=== PATIENT | male | born 1955 | race Caucasian/White ===

== ENCOUNTER 2018-11-20 16:36 | Emergency (ER) | payer MEDICARE, OTHER ==
[~2018-11-20] VITALS: Ht 167.6 cm; Wt 93.4 kg
[2018-11-20] MEDS ORDERED: LOSA100T5 (16:46)
[2018-11-20 17:37] LABS: BASO % 0.2 % (0.0-1.0); EOS % 0.1 % (0.0-3.0); HEMATOCRIT 47.6 % (42.0-52.0); HEMOGLOBIN 16.3 g/dl (13.5-17.5); LYMPH # 1.1 10^3/uL (1.5-4.5); LYMPH % 9.2 % (24.0-44.0); MEAN CORPUSCULAR HEMOGLOBIN 30.3 pg (27.0-33.0); MEAN CORPUSCULAR HGB CONC 34.2 g/dl (32.0-36.5); MEAN CORPUSCULAR VOLUME 88.5 fl (80.0-96.0); MONO # 0.8 10^3/uL (0.0-0.8); MONO % 6.4 % (0.0-5.0); NEUTROPHILS % 83.7 % (36.0-66.0); PLATELET COUNT, AUTOMATED 203 10^3/uL (150-450); RED BLOOD COUNT 5.38 10^6/uL (4.30-6.10); WHITE BLOOD COUNT 11.9 10^3/uL (4.0-10.0)
[2018-11-20 18:10] LABS: ALBUMIN 4.4 GM/DL (3.2-5.2); ALT/SGPT 36 U/L (12-78); BILIRUBIN,DIRECT 0.2 MG/DL (0.0-0.2); BILIRUBIN,TOTAL 1.2 MG/DL (0.2-1.0); BLOOD UREA NITROGEN 17 MG/DL (7-18); CALCIUM LEVEL 9.7 MG/DL (8.8-10.2); CARBON DIOXIDE LEVEL 26 MEQ/L (21-32); CHLORIDE LEVEL 101 MEQ/L (98-107); CREATININE FOR GFR 1.11 MG/DL (0.70-1.30); GLOMERULAR FILTRATION RATE > 60.0 (>49); GLUCOSE, FASTING 101 MG/DL (70-100); LIPASE 63 U/L (73-393); POTASSIUM SERUM 4.5 MEQ/L (3.5-5.1); SODIUM LEVEL 134 MEQ/L (136-145)
--- NOTE | 2018-11-20 18:24 | SMCUROLCON ---
Urology Consultation General Date of Consultation 11/20/18 Reason For Consultation This patient is seen for Urinary Problem.L flank pain with hydro History of Present Illness The patient is a [63]-year-old [male] with a past medical history for [HTN], who presents a 2 day h/o L abd pain with N/V. No fevers. Denies weak stream or urgency/freq sx. Remote h/o prostatitis. Unaware of past PSA screening. No temps or chills. CT done today at [facility] urgent care showed L hydro with extravasation of urine and no definite stone with ureteral dilation to bladder. On my review, the bladder is distended(not mentioned in report) with no stones and L hydro. Pt takes asa. + fam h/o stones(daughter). 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 No h/o DM, lower ext numbness or weakness, neurologic or back issues. No fam h/o CaP. Creat at [facility] today was 1.1. PSA today is 4.75. Past Medical History Medical History HTN - on lisinopril Surgical Hstory Orthopedic proc Family History Significant Family History: Other (stones in daughter) Social History * Smoker: former Smoker Alcohol: rarely Drugs: denies Medications Current Medications Lisinopril, asa Allergies Allergies: Coded Allergies: No Known Allergies (Unverified , 11/20/18) Review of Systems General: Reports: Malaise, Normal Appetite (nausea); Denies: ROS Unobtainable, Chills, Night Sweats, Fatigue, Other Symptoms Constitutional: Reports: Malaise Eyes: Denies: Pain, Vision change, Conjunctivae inflammation, Eyelid inflammation, Redness, Other ENT: Denies: Head Aches, Ear Pain, Dysphagia, Sinus Congestion, Post Nasal Drip, Sore Throat, Epistaxis, Other Symptoms Skin: Denies: Rash, Lesions, Jaundice, Bruising, Itching, Dry, Breakdown, Nail Changes, Other Pulmonary: Denies: Dyspnea, Cough, Pleuritic Chest Pain, Other Symptoms Cardiovascular: Denies Chest Pain, Denies Palpitations, Denies Orthopnea, Denies Paroxysmal Noc. Dyspnea, Denies Edema, Denies Lt Headedness, Denies Other Symptoms Gastrointestinal: Denies: Nausea, Vomiting, Abdominal Pain, Diarrhea, Constipation, Melena, Hematochezia, Other Symptoms Genitourinary: Reports: Dysuria, Frequency, Incontinence, Hematuria, Retention, Other Symptoms (Minimal voiding sx - see HPI) Hematologic: Denies: Bruising, Bleeding Excessively, Petecchia, Purpura, Enlarged Lymph Nodes, Other Hematologic Endocrine: Denies: Polydipsia, Polyphagia, Polyuria, Heat Intolerance, Cold Intolerance, Other Endocrine Sx Musculoskeletal: Denies: Neck Pain, Back Pain, Shoulder Pain, Arm Pain, Hand Pain, Leg Pain, Foot Pain, Joint Pain, Muscle Pain, Spasms, Other Symptoms Neurological: Denies: Weakness, Numbness, Incoordination, Change in Speech, Confusion, Seizures, Other Symptoms Psych: Denies: Mood Normal, Anxiety, Depression, Memory Issues, Thoughts of Self Harm, Anger, Thoughts of harming Other, Other Psych Physical Examination General Exam: Alert, Cooperative, No Acute Distress EYE EXAM: PERRLA, Conjunctiva & lids normal, EOMI ENT EXAM: Atraumatic, Mucous membr. moist/pink, Tongue Midline Neck Exam: Supple Chest Exam: Clear to auscultation, Normal air movement Heart Exam: Rate Normal, Regular Rhythm, Normal S1, Normal S2 Abdomen Exam: Normal Bowel Sounds, Tenderness (LUQ and flank), Mass (bladder palpable @ umbilicus) Male Exam: Normal Genital Exam, Normal Prostate (>35 gm and smooth) Extremity Exam: No: Clubbing, Cyanosis, Edema, Normal Pulses, Tenderness, Swelling, Other Skin Exam: No: Nl turgor and temperature, Rash, Breakdown, Lesion, Pruritus, Other skin issue Neuro Exam: Normal Gait, Normal Speech, Strength at 5/5 X4 ext, Normal Tone, Sensation Intact, Cranial Nerves 3-12 NL, Reflexes 2+ Psych Exam: Mental status NL, Mood NL, Oriented x 3 Vital Signs/I&O Vital Signs Date Time Temp Pulse Resp B/P (MAP) Pulse Ox O2 Delivery O2 Flow Rate FiO2 11/20/18 17:52 11/20/18 16:37 98.8 64 19 98 Room Air Laboratory Data 24H Labs Laboratory Tests 2 11/20/18 17:09: Immature Granulocyte % (Auto) 0.4, White Blood Count 11.9H, Red Blood Count 5.38, Hemoglobin 16.3, Hematocrit 47.6, Mean Corpuscular Volume 88.5, Mean Corpuscular Hemoglobin 30.3, Mean Corpuscular Hemoglobin Concent 34.2, Red Cell Distribution Width 13.7, Platelet Count 203, Neutrophils (%) (Auto) 83.7H, Lymphocytes (%) (Auto) 9.2L, Monocytes (%) (Auto) 6.4H, Eosinophils (%) (Auto) 0.1, Basophils (%) (Auto) 0.2, Neutrophils # (Auto) 10.0H, Lymphocytes # (Auto) 1.1L, Monocytes # (Auto) 0.8, Eosinophils # (Auto) 0.0, Basophils # (Auto) 0.0, Nucleated Red Blood Cells % (auto) 0.0, Urine Color STRAW, Urine Appearance CLEAR, Urine pH 6.0, Urine Specific Baxter 1.028, Urine Protein NEGATIVE, Urine Glucose (UA) NEGATIVE, Urine Ketones NEGATIVE, Urine Blood 1+H, Urine Nitrite NEGATIVE, Urine Bilirubin NEGATIVE, Urine Urobilinogen 0.2, Urine Leukocyte Esterase NEGATIVE, Urine WBC (Auto) 0, Urine RBC (Auto) 1, Urine Hyaline Casts (Auto) 0, Urine Bacteria (Auto) NEGATIVE, Urine Squamous Epithelial Cells 0, Urine Sperm (Auto) CBC/BMP Laboratory Tests 11/20/18 17:09 Red Blood Count 5.38, Mean Corpuscular Volume 88.5, Mean Corpuscular Hemoglobin 30.3, Mean Corpuscular Hemoglobin Concent 34.2, Red Cell Distribution Width 13.7, Neutrophils (%) (Auto) 83.7 H, Lymphocytes (%) (Auto) 9.2 L, Monocytes (%) (Auto) 6.4 H, Eosinophils (%) (Auto) 0.1, Basophils (%) (Auto) 0.2, Neutrophils # (Auto) 10.0 H, Lymphocytes # (Auto) 1.1 L, Monocytes # (Auto) 0.8, Eosinophils # (Auto) 0.0, Basophils # (Auto) 0.0 Assessment A: Urinary retention with secondary L hydronephrosis and renal colic; Mild PSA elevation (4.75)with enlarged prostate; Nl renal function Plan P: Briones to leg bag and home. C&S sent. F/U for office cysto in 10-14 days - My office to call D/W with ALEAH Craven at [facility] Time Spent on Consult: Time Spent / Consult (Minutes): 65 BRODERICK DALTON MD Nov 20, 2018 18:24
[2018-11-20] MEDS ORDERED: LIDOCAINE 2% 5ML JELLY UROJET TOP ONE (18:30)
[2018-11-20 19:06] VITALS: BP 135/84
== END 2018-11-20 20:08 | disposition home or self-care (01) ==
LOC: M ED 16:36
DX: R33.9 Retention of urine, unspecified (principal); N13.30 Unspecified hydronephrosis; N13.4 Hydroureter; N23 Unspecified renal colic; R97.20 Elevated prostate specific antigen [PSA]; N40.0 Benign prostatic hyperplasia without lower urinary tract symptoms; I10 Essential (primary) hypertension; Z79.899 Other long term (current) drug therapy; Z79.82 Long term (current) use of aspirin; Z87.891 Personal history of nicotine dependence; Z84.1 Family history of disorders of kidney and ureter; Z12.5 Encounter for screening for malignant neoplasm of prostate
CPT/HCPCS: 51702; 80048; 80076; 81001; 83690; 85025; 93041; 99285; G0103

== ENCOUNTER → 2018-11-27 | Outpatient (CLI) | payer MEDICARE, OTHER ==
[~2018-11-27] MED LIST: LOSA100T5
--- NOTE | 2018-11-27 11:55 | REP ---
Clinical: Hydronephrosis. Technique: Real time rodriguez scale ultrasound examination using curved array transducer. Findings: Bilateral kidneys are normal in contour, size, echogenicity and reniform shape with mildly increased central sinus fat and cortical thinning suggesting chronic renal disease. No hydronephrosis, nephrolithiasis, cystic or renal mass lesion appreciated. Right kidney measures 12.7 x 5.7 x 5.9 cm. Kidney measures 12.6 x 5.0 x 6.9 cm. Briones catheter in collapsed bladder. Impression: Findings suggesting chronic medical renal disease. No hydronephrosis. Electronically Signed by Keith Asencio MD 11/27/2018 11:46 A
[2018-11-29 14:07] LABS: PSA % FREE 16.1 % (.); PSA FREE 0.9 ng/mL; PSA TOTAL 5.6 ng/mL (0.0-4.0)
== END ==
LOC: M RAD 11:17
PROVIDERS: ATTEND Urology
DX: N28.89 Other specified disorders of kidney and ureter (principal); R97.20 Elevated prostate specific antigen [PSA]

== ENCOUNTER → 2018-12-11 | Outpatient (CLI) | payer MEDICARE, OTHER ==
[~2018-12-11] MED LIST changes: +ASPI81TA85 PO; +CBD OIL PA; +D 50CAP3 PO; -LOSA100T5; +LOSA100T5 PO
--- NOTE | 2018-12-11 18:52 | REP ---
TRANSRECTAL PROSTATE ULTRASOUND: Real-time sonographic evaluation of the prostate was performed utilizing transrectal probe. Prostate is significantly enlarged measuring 7.3 x 5.4 x 6.7 cm, total volume 138 mL. Echo texture is diffusely heterogenous and nodular. Multiple calcifications are present. Briones catheter is seen in the urethra. IMPRESSION: Marked enlargement of the prostate. Electronically Signed by Shmuel Patel MD 12/13/2018 04:34 P
== END ==
LOC: M RAD 11:04
PROVIDERS: ATTEND Urology
DX: R33.9 Retention of urine, unspecified (principal); N40.0 Benign prostatic hyperplasia without lower urinary tract symptoms

== ENCOUNTER → 2018-12-26 | Outpatient (CLI) | payer MEDICARE, OTHER ==
[~2018-12-26] MED LIST changes: -ASPI81TA85 PO; -CBD OIL PA; -D 50CAP3 PO; +LOSA100T5; -LOSA100T5 PO
== END ==
LOC: M SMT 14:59
PROVIDERS: ATTEND Urology
DX: R97.20 Elevated prostate specific antigen [PSA] (principal)
CPT/HCPCS: 36415; 84153; G0463

== ENCOUNTER → 2019-01-22 | Outpatient (CLI) | payer MEDICARE, OTHER ==
--- NOTE | 2019-01-22 14:15 | REP ---
Transrectal sonographic guidance: History: Elevated PSA. Findings: Transrectal ultrasound guidance is provided to Dr. Yi who performed ultrasound-guided needle biopsy procedure of the prostate. Electronically Signed by Jed Shah MD 01/22/2019 02:24 P
== END ==
LOC: M SMT PRO 09:05
PROVIDERS: ATTEND Urology
DX: R97.20 Elevated prostate specific antigen [PSA] (principal)
CPT/HCPCS: 51702; 55700; 76942; G0416

== ENCOUNTER → 2019-02-13 | Outpatient (CLI) | payer MEDICARE, OTHER ==
[~2019-02-13] MED LIST changes: +ASPI81TA85 PO; +CBD OIL PA; +D 50CAP3 PO; -LOSA100T5; +LOSA100T5 PO
--- NOTE | 2019-02-13 10:14 | REP ---
Two-view chest: 02/13/2019. Indication: Preoperative assessment. Comparison: None. Findings: There is no air space consolidation, pleural effusion or pneumothorax. The cardiomediastinal silhouette is unremarkable. Multilevel degenerative sequelae of the thoracic spine are present. Impression: No acute cardiopulmonary process. Electronically Signed by Jameel Lynn DO 02/13/2019 10:06 A
[2019-02-13 10:19] LABS: HEMATOCRIT 47.3 % (42.0-52.0); HEMOGLOBIN 15.8 g/dl (13.5-17.5); MEAN CORPUSCULAR HEMOGLOBIN 29.5 pg (27.0-33.0); MEAN CORPUSCULAR HGB CONC 33.4 g/dl (32.0-36.5); MEAN CORPUSCULAR VOLUME 88.4 fl (80.0-96.0); PLATELET COUNT, AUTOMATED 209 10^3/uL (150-450); RED BLOOD COUNT 5.35 10^6/uL (4.30-6.10); WHITE BLOOD COUNT 5.8 10^3/uL (4.0-10.0)
[2019-02-13 10:33] LABS: INR 1.06; PROTHROMBIN TIME 13.5 SECONDS (11.8-14.0)
[2019-02-13 10:34] LABS: PARTIAL THROMBOPLASTIN TIME 28.9 SECONDS (25.0-38.4)
[2019-02-13 10:40] LABS: BLOOD UREA NITROGEN 20 MG/DL (7-18); CALCIUM LEVEL 9.6 MG/DL (8.8-10.2); CARBON DIOXIDE LEVEL 24 MEQ/L (21-32); CHLORIDE LEVEL 109 MEQ/L (98-107); CREATININE FOR GFR 0.96 MG/DL (0.70-1.30); GLOMERULAR FILTRATION RATE > 60.0 (>49); GLUCOSE, FASTING 77 MG/DL (70-100); SODIUM LEVEL 141 MEQ/L (136-145)
--- NOTE | 2019-02-15 01:01 | ECGEPIP ---
[facility] Test Date: 2019-02-13 Pat Name: BRODERICK GATES Department: Room: - Gender: Male Lead Handler: : [id number] Requested By: ROSSY Orellana Order Number: [id number] Reading MD: Rdoo Cruz Measurements Intervals [place] Rate: 68 P: 35 ID: [id number] QRS: -27 QRSD: 112 T: 1 QT: 401 QTc: 429 Interpretive Statements SINUS RHYTHM BORDERLINE LEFT AXIS DEVIATION MODERATE INTRAVENTRICULAR CONDUCTION DELAY/ RIGHT BUNDLE-BRANCH BLOCK PATTERN No prior tracing in the system Electronically Signed on 02-15-2019 1:01:02 EST by Rodo Cruz
== END ==
LOC: M LAB 09:15
PROVIDERS: ATTEND Urology
DX: Z01.818 Encounter for other preprocedural examination (principal); N40.1 Benign prostatic hyperplasia with lower urinary tract symptoms; R33.9 Retention of urine, unspecified; R94.31 Abnormal electrocardiogram [ECG] [EKG]; Z79.82 Long term (current) use of aspirin; Z79.899 Other long term (current) drug therapy

== ENCOUNTER → 2019-02-25 | Outpatient (REF) | payer MEDICARE, OTHER | LOC: M SMT 13:27 | PROVIDERS: ATTEND Urology | DX: Z01.818 Encounter for other preprocedural examination (principal); N40.1 Benign prostatic hyperplasia with lower urinary tract symptoms; R33.9 Retention of urine, unspecified; N39.0 Urinary tract infection, site not specified ==

== ENCOUNTER 2019-03-04 12:13 | Day surgery (SDC) | payer MEDICARE, OTHER ==
[~2019-03-04] VITALS: Ht 167.6 cm; Wt 87.5 kg
[~2019-03-04 12:13] MED LIST changes: +LR 1,000 ML IV ONE; +ceFAZolin SOD 2 GM in IV 1 EA IV ONE
[2019-03-04] MEDS ORDERED: SCOPOLAMINE 1MG TRANSDERMAL PATCH As Ordered ONE (12:55)
[2019-03-04] MEDS ORDERED: SCOPOLAMINE 1MG TRANSDERMAL PATCH TOP ONE (13:00)
[2019-03-04] MEDS ORDERED: fentaNYL 250 MCG/5 ML INJECTION (J3010) As Ordered ONE (13:04)
[2019-03-04] MEDS ORDERED: ROCURONIUM BROMIDE 50 MG/5 ML VIAL As Ordered ONE ×2 (13:04→15:17)
[2019-03-04] MEDS ORDERED: LIDOCAINE 2% INJ 100 MG/5 ML SDV (FOR ANES.) As Ordered ONE (13:04)
[2019-03-04] MEDS ORDERED: MIDAZOLAM INJ 2 MG/2 ML VIAL (J2250) As Ordered ONE (13:04)
[2019-03-04] MEDS ORDERED: propofoL 200 MG/20 ML VIAL As Ordered ONE (13:04)
[2019-03-04] MEDS ORDERED: PHENYLephrine HCL 500 MCG/5 ML (100MCG/ML) SYRINGE (J2370) As Ordered ONE (14:23)
[2019-03-04] MEDS ORDERED: METOCLOPRAMIDE INJ 10MG/2ML VIAL (J2765) As Ordered ONE (14:33)
[2019-03-04] MEDS ORDERED: ePHEDrine SULFATE 25 MG/5 ML(5MG/ML) SYRINGE As Ordered ONE (14:33)
[2019-03-04] MEDS ORDERED: GLYCOPYRROLATE INJ 0.2 MG/ML 2 ML VIAL As Ordered ONE (14:48)
[2019-03-04] MEDS ORDERED: ONDANSETRON 4MG/2ML VIAL (J2405) As Ordered ONE (14:48)
[2019-03-04] MEDS ORDERED: ACETAMINOPHEN 1000MG 100ML IV BTL (OFIRMEV) (J0131 PER 10MG) As Ordered ONE (16:03)
[2019-03-04] MEDS ORDERED: FUROSEMIDE 100 MG/10 ML VIAL (J1940) As Ordered ONE (17:06)
[2019-03-04] MEDS ORDERED: ONDANSETRON 4MG/2ML VIAL (J2405) IV PRN (18:15)
[2019-03-04] MEDS ORDERED: oxyCODONE 5MG TAB PO PRN (18:15)
[2019-03-04] MEDS ORDERED: ACETAMINOPHEN TAB 650MG DOSE (2X325MG) PO PRN (18:15)
[2019-03-04] MEDS ORDERED: fentaNYL 100 MCG/2 ML INJECTION (J3010) IV PRN (18:15)
[2019-03-04] MEDS ORDERED: LR 1,000 ML IV SCH (18:15)
--- NOTE | 2019-03-04 19:04 | RO ---
DATE OF PROCEDURE: 03/04/2019 PREPROCEDURE DIAGNOSIS: Benign prostatic hyperplasia. POSTPROCEDURE DIAGNOSIS: Benign prostatic hyperplasia. PROCEDURE: Cystoscopy, button transurethral electrovaporization of the prostate. SURGEON: Ronald Yi MD TUBE AND ROD STRAIGHTENER: None. ANESTHESIA: General. OPERATIVE INDICATIONS: This is a 64-year-old male with benign prostatic hyperplasia with urinary retention. He was brought to the operating room today for treatment. DESCRIPTION OF PROCEDURE: The patient was brought to the operating room and general anesthesia was induced. Prophylactic antibiotics were infused. He was then placed in the dorsal lithotomy position and prepped and draped in the usual sterile fashion. At this point, a button resectoscope was inserted into the urethral meatus and advanced to the bladder using a visual obturator. Once inside the bladder, I made note of the location of both ureteral orifices. They were not close to the bladder neck. Also, of note, the patient had a large median lobe. At this point, I began vaporizing hyperplastic tissue, first in the median lobe and then circumferentially at the bladder neck. After that, I vaporized hyperplastic tissue on both lateral lobes. I kept doing this until there was a clear channel established. Throughout the procedure, I made sure not to vaporize too close to the ureteral orifices or distal to the verumontanum. Once a clear channel was established, hemostasis was obtained using coagulation current. Once satisfied with hemostasis, the resectoscope was removed and the 18-[place] Briones catheter was inserted into the bladder. The balloon was filled with 15 mL of sterile water, and then after that the fluid drained clear out of the catheter. The catheter was then connected to gravity drainage, and this marked the conclusion of the procedure. The patient was then taken out of the dorsal lithotomy position, awakened from anesthesia and transported to the recovery room in stable condition. Estimated blood loss: 25 mL. Complications: None. Specimens: None. PLAN: The patient will followup in the clinic in approximately 1 week for catheter removal and a voiding trial. TATIANNA
[2019-03-04 20:00] VITALS: BP 119/67
== END 2019-03-04 20:15 | disposition home or self-care (01) ==
LOC: M SDC 12:13
PROVIDERS: ATTEND Urology
DX: N40.1 Benign prostatic hyperplasia with lower urinary tract symptoms (principal); I10 Essential (primary) hypertension; Z79.82 Long term (current) use of aspirin; Z79.899 Other long term (current) drug therapy
CPT/HCPCS: 52601; J0131; J0690; J1940; J2250; J2370; J2405; J2765; J3010

== ENCOUNTER → 2019-08-06 | Outpatient (REF) | payer MEDICARE, OTHER ==
[~2019-08-06] MED LIST changes: -ASPI81TA85 PO; +ASPI81TA86 PO; -LR 1,000 ML IV ONE; -ceFAZolin SOD 2 GM in IV 1 EA IV ONE
[2019-08-06 18:30] LABS: APPEARANCE, URINE CLOUDY (CLEAR); BACTERIA, URINE AUTO NEGATIVE (NEGATIVE); BILIRUBIN, URINE AUTO NEGATIVE (NEGATIVE); BLOOD, URINE BLOOD 2+ (NEGATIVE); COLOR, URINE YELLOW (YELLOW); GLUCOSE, URINE (UA) AUTO NEGATIVE (NEGATIVE); KETONE, URINE AUTO NEGATIVE (NEGATIVE); LEUKOCYTE ESTERASE, URINE AUTO 3+ (NEGATIVE); NITRITE, URINE AUTO NEGATIVE (NEGATIVE); PROTEIN, URINE AUTO 1+ mg/dL (NEGATIVE); RBC, URINE AUTO 140 /HPF (0-3); SPECIFIC GRAVITY URINE AUTO 1.011 (1.002-1.035); SQUAMOUS EPITHELIAL CELL UR AU 0 /HPF (0-6); UROBILINOGEN, URINE AUTO 0.2 mg/dL (0.0-2.0); WBC, URINE AUTO TNTC /HPF (0-3)
== END ==
LOC: M SMT 17:50
PROVIDERS: ATTEND Urology
DX: R31.0 Gross hematuria (principal)

== ENCOUNTER → 2020-02-14 | Outpatient (REF) | payer MEDICARE, OTHER ==
[2020-02-14 14:40] LABS: APPEARANCE, URINE CLEAR (CLEAR); BACTERIA, URINE AUTO NEGATIVE (NEGATIVE); BILIRUBIN, URINE AUTO NEGATIVE (NEGATIVE); BLOOD, URINE BLOOD NEGATIVE (NEGATIVE); COLOR, URINE YELLOW (YELLOW); GLUCOSE, URINE (UA) AUTO NEGATIVE (NEGATIVE); KETONE, URINE AUTO NEGATIVE (NEGATIVE); LEUKOCYTE ESTERASE, URINE AUTO NEGATIVE (NEGATIVE); NITRITE, URINE AUTO NEGATIVE (NEGATIVE); PROTEIN, URINE AUTO NEGATIVE (NEGATIVE); RBC, URINE AUTO 0 /HPF (0-3); SPECIFIC GRAVITY URINE AUTO 1.015 (1.002-1.035); SQUAMOUS EPITHELIAL CELL UR AU 0 /HPF (0-6); UROBILINOGEN, URINE AUTO 0.2 mg/dL (0.0-2.0); WBC, URINE AUTO 0 /HPF (0-3)
== END ==
LOC: M SMT 13:15
PROVIDERS: ATTEND Urology
DX: R31.0 Gross hematuria (principal)
CPT/HCPCS: 51798; 81001; 87086; G0463

== ENCOUNTER → 2020-02-19 | Outpatient (CLI) | payer MEDICARE, OTHER ==
[~2020-02-19] MED LIST changes: +ISOVUE-370 76% 100ML VIAL As Ordered ONE
--- NOTE | 2020-02-19 10:32 | REP ---
INDICATION: HEMATURIA. COMPARISON: None TECHNIQUE: Axial precontrast, contrast-enhanced and delayed images from the lung bases to the pubic symphysis using 100 cc Isovue 370 intravenous contrast material. Coronal and sagittal reformations obtained along with post processed volume rendered 3D CT urogram. This CT examination was performed using the following dose reduction techniques: Automated exposure control, adjustment of mA and/or kv according to the patient's size, and the use of iterative reconstruction technique. FINDINGS: Evaluation of the urinary tract system demonstrates mild symmetric chronic perinephric stranding along with few small bilateral simple peripelvic renal cysts. No hydroureteronephrosis, nephroureterolithiasis, or further abnormality noted. The prostate gland is enlarged and causes moderate mass effect on the base of the bladder. Liver includes 1.8 cm simple cyst in the anterior right lobe. The spleen, pancreas, gallbladder, and bilateral adrenal glands are normal. The enteric system including stomach, small, and large bowel appears normal. No evidence for obstruction or acute inflammatory process. Normal terminal ileum and appendix are identified in the right lower quadrant. Colonic and sigmoid diverticula noted without acute diverticulitis. Pelvis demonstrates enlarged heterogeneous prostate gland measuring approximately 6.1 cm diameter and having mass effect on the posterior bladder wall. Small fat containing inguinal hernias are identified. No ascites. No free air. No intraperitoneal or retroperitoneal adenopathy. Abdominal aorta and vasculature appear normal. Musculoskeletal structures demonstrate degenerative changes without acute osseous abnormality. IMPRESSION: 1. Kidneys demonstrate few small benign appearing peripelvic cysts. 2. Heterogeneous enlarged prostate gland with mass effect on the base of the bladder possibly related to hematuria. 3. Benign hepatic cyst. 4. Sigmoid diverticulosis without acute diverticulitis. <Electronically signed by Keith Asencio > 02/19/20 0324
== END ==
LOC: M RAD 09:21
PROVIDERS: ATTEND Urology
DX: R31.0 Gross hematuria (principal); N28.1 Cyst of kidney, acquired; N40.1 Benign prostatic hyperplasia with lower urinary tract symptoms; K76.89 Other specified diseases of liver
CPT/HCPCS: 74178; Q9967

== ENCOUNTER 2022-08-16 06:27 | Day surgery (SDC) | payer OTHER ==
[~2022-08-16] VITALS: Ht 167.6 cm; Wt 294.8 kg
[~2022-08-16 06:27] MED LIST changes: +CYCLOPENTOLATE 1% OPHTH SOLN 2ML BTL OD SCH; +D 101000 PO; +FINA5TAB2 PO; +HYDR-3490 PO; -ISOVUE-370 76% 100ML VIAL As Ordered ONE; +LOSA100T46 PO; +OFLOXACIN 0.3 % (OCUFLOX) OPTH SOL 5ML OD SCH; +PHENYLEPHRINE 2.5% OPHTH SOL 2ML OD SCH; +PROPARACAINE 0.5% OPHTH SOL 15ML OD ONE; +TROPICAMIDE 1% OPHTH SOLN 15ML OD SCH
[2022-08-16] MEDS ORDERED: LIDOCAINE 1% SDV 5ML VIAL As Ordered ONE (06:39)
[2022-08-16] MEDS ORDERED: BSS IRR 500ML/OMIDRIA 4ML IRR BAG (OR ONLY) As Ordered ONE (06:40)
[2022-08-16] MEDS ORDERED: CEFUROXIME 1MG/0.1ML INTRACAMERAL INJ As Ordered ONE (06:40)
[2022-08-16] MEDS ORDERED: fentaNYL 100 MCG/2 ML INJECTION As Ordered ONE (07:03)
[2022-08-16] MEDS ORDERED: MIDAZOLAM INJ 2MG/2ML VIAL As Ordered ONE (07:03)
[2022-08-16 09:19] VITALS: BP 143/81
== END 2022-08-16 09:20 | disposition home or self-care (01) ==
LOC: M SDC 06:27
PROVIDERS: ATTEND Ophthalmology
DX: H25.11 Age-related nuclear cataract, right eye (principal); I10 Essential (primary) hypertension; M10.9 Gout, unspecified; N40.0 Benign prostatic hyperplasia without lower urinary tract symptoms; Z79.899 Other long term (current) drug therapy
CPT/HCPCS: 66984; J0697; J1097; J2250; J3010; V2632

== ENCOUNTER → 2022-09-13 | Outpatient (REF) | payer OTHER ==
[~2022-09-13] MED LIST changes: -CYCLOPENTOLATE 1% OPHTH SOLN 2ML BTL OD SCH; -OFLOXACIN 0.3 % (OCUFLOX) OPTH SOL 5ML OD SCH; -PHENYLEPHRINE 2.5% OPHTH SOL 2ML OD SCH; -PROPARACAINE 0.5% OPHTH SOL 15ML OD ONE; -TROPICAMIDE 1% OPHTH SOLN 15ML OD SCH
== END ==
LOC: M LABSMT 10:33
PROVIDERS: ATTEND Urology
DX: R97.20 Elevated prostate specific antigen [PSA] (principal)

== ENCOUNTER → 2023-09-14 | Outpatient (REF) | payer OTHER | LOC: M LABSMT 10:52 | PROVIDERS: ATTEND Urology | DX: Z87.898 Personal history of other specified conditions (principal) ==